=== PATIENT | male | born 1965 | race Caucasian/White ===

== ENCOUNTER 2016-08-04 17:36 | Emergency (ER) | payer OTHER ==
[~2016-08-04] VITALS: Ht 167.6 cm; Wt 87.1 kg
[2016-08-04 17:36] VITALS: BP_SYST 139
--- NOTE | 2016-08-04 17:36 | NUR ---
BROUGHT IN BY JUAN JOSÉ SHAH AND PLACED IN BED #7, TRIAGED AND REPORT GIVEN TO DARELL
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
--- NOTE | 2016-08-04 18:08 | NUR ---
ER at bedside examining patient.
[2016-08-04] MEDS ORDERED: HYDROcodone/ACETAMIN 10-325 MG TAB PO ONE (18:15)
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
--- NOTE | 2016-08-04 19:35 | NUR ---
Pt in Radiology, not in room.
[2016-08-04 20:30] VITALS: BP_SYST 109
--- NOTE | 2016-08-04 20:30 | NUR ---
Patient given written and verbal discharge instructions and verbalizes understanding. ER MD discussed with patient the results and treatment provided. Patient in stable condition. ID arm band removed. Rx of [place] given. Patient educated on pain management and to follow up with PMD. Pain Scale 2/10. Opportunity for questions provided and answered.
== END 2016-08-04 20:30 | disposition home or self-care (01) ==
LOC: SED 17:36
DX: S02.609A Fracture of mandible, unspecified, initial encounter for closed fracture (principal); M25.511 Pain in right shoulder; R51 Headache; V89.2XXA Person injured in unspecified motor-vehicle accident, traffic, initial encounter; Y93.89 Activity, other specified; Y92.488 Other paved roadways as the place of occurrence of the external cause; Y99.8 Other external cause status
CPT/HCPCS: 70110-TC; 70450-TC; 73000-TC; 73010-TC; 73060-TC; 73090; 99284